=== PATIENT | female | born 1985 | race African-American/Black ===

== ENCOUNTER 2023-03-29 10:07 | Outpatient (AMB) | payer OTHER, SELFPAY ==
[2023-03-29 10:33] VITALS: BP 96/62; PULSE 86; O2SAT 97; BMI 30.9
--- NOTE | 2023-03-29 10:33 | A.OFFPC_ITS ---
Vital Signs 03/29/23 10:33 Height 5 ft 4 in Weight 180 lb BMI 30.9 BP 96/62 Blood Pressure Location Lt brachial Position Sitting Pulse 86 Pulse Source Pulse Oximeter Pulse Oximetry (%) 97 Oxygen Delivery Method Room Air Intake Visit Reasons: [facility], asthma attack Intake Note: Pt is here today for ER follow up visit. Allergies montelukast Allergy (Unknown, Verified 03/29/23 10:34) swelling of her lymph nodes Medication List - Last Reconciled 03/29/23 by Tere Koenig MD albuterol sulfate 90 mcg/actuation 2 puffs PO Q4H PRN albuterol sulfate 0.63 mg (3 mL) inhalation QID PRN ascorbate calcium (vitamin C) 500 mg PO DAILY Breo Ellipta 100-25 mcg/dose (fluticasone furoate-vilanterol) 1 inh inhalation DAILY NS dupilumab (Dupixent) 300 mg subcut Q2W ferrous fumarate 324 mg PO DAILY multivitamin with minerals (Hair,Skin and Nails tablet) 1 tab PO DAILY nebulizers As directed pyridoxine (vitamin B6) 50 mg PO DAILY Tobacco use date assessed: 03/29/23 Dental Screening Dental Screen Date: 03/29/23 Did you have a dental visit in the last 12 months?: Yes Did you have a dental problem in the last 6 months where you did not have access to dental care?: No Was dental information given to patient?: Patient has dentist HPI [facility], asthma attack HPI Details Pt c/o persistent cough and wheezing and clear sputum using Albuterol up to 4 x a day and at night. Pt denies fever, chills, CP. Patient was seen in the ED and was treated with a short course of prednisone. She reports her asthma symptoms worsened when she ran out of Dupixent a few months. Patient follows up with ENT who has been prescribing Dupixent and has been getting allergy shots. [facility] Medical History Folliculitis Candidiasis Annual physical exam Allergic rhinitis Asthma Family History Father No problems noted. Mother No problems noted. Social History Housing: House Alcohol intake: never Patient Tobacco Use Status: Never used Tobacco e-Cigarette/Vaping Use: Never Used Current occupational status: employed Cognitive needs: No Hearing needs: No Vision needs: Yes Questionnaire PHQ-9 Over the last 2 weeks, how often have you been bothered by any of the following problems? 1. Little interest or pleasure in doing things: several days 2. Feeling down, depressed, or hopeless: several days 3. Trouble falling or staying asleep, or sleeping too much: nearly every day 4. Feeling tired or having little energy: nearly every day 5. Poor appetite or overeating: several days 6. Feeling bad about yourself - or that you are a failure or have let yourself or your family down: not at all 7. Trouble concentrating on things, such as reading the newspaper or watching television: more than half the days 8. Moving or speaking so slowly that other people could have noticed. Or the opposite - being so fidgety or restless that you have been moving around a lot more than usual: not at all 9. Thoughts that you would be better off or of hurting yourself in some way: not at all Total score: 11 Depression Screening Interpretation: Positive Depression Screening Done: Yes Source: Developed by Drs. Alverto Lacy, Echo Barber, Tyree Escobedo and colleagues, with an educational radha from [employer]. Thrive Questionnaire Date Thrive assessed: 03/29/23 I am a: Patient What is your living situation today?: I have a steady place to live Within the past 12 months, did the food you bought not last and you didn't have the money to get more?: Never true Within the past 12 months, did you worry whether your food would run out before you got money to buy more?: Never true Do you have trouble paying for medicines?: No Do you have trouble getting transportation to medical appointments?: No Do you have trouble paying your heating and electricity bill?: No Do you have trouble taking care of your child, family member or friend?: No Do you have trouble with day-to-day activities such as bathing, preparing meals, shopping, managing finances, etc.?: No Are you currently unemployed and looking for a job?: No Are you interested in more education?: No Please select the resources that you would like help with: None THRIVE Score: 0 AUDIT C Alcohol Use Questionnaire (AUDIT-C) 1. How often do you have a drink containing alcohol?: Monthly or less 2. How many drinks containing alcohol do you have on a typical day when you are drinking?: 1 or 2 3. How often do you have six or more drinks on one occasion?: Never Total Score: 1 MANNY-7 AMB Questionnaire MANNY-7 Date MANNY - 7 assessed: 03/29/23 Feeling nervous, anxious, or on edge: 2 = More than half the days Not being able to stop or control worryin = More than half the days Worrying too much about different things: 2 = More than half the days Trouble relaxin = More than half the days Being so restless that it is hard to sit still: 0 = Not at all Becoming easily annoyed or irritable: 1 = Several days Feeling afraid as if something awful might happen: 0 = Not at all Total MANNY-7 score (0-4 normal; 5-9 mild; 10-14 moderate; 15-21 severe): 9 Source: Developed by Drs. Alverto Lacy, Echo Barber, Tyree Escobedo and colleagues, with an educational radha from [employer]. Review of Systems Const All systems reviewed & are unremarkable except as noted in HPI and below Reports no additional complaints Eyes Reports no additional complaints ENT Reports no additional complaints Card Reports no additional complaints Resp Reports no additional complaints GI Reports no additional complaints Reports no additional complaints Physical exam (Primary Care) Vital Signs: Last Vital Signs Pulse 86 03/29/23 10:33 BP 96/62 03/29/23 10:33 Pulse Ox 97 03/29/23 10:33 Oxygen Delivery Method Room Air 03/29/23 10:33 BMI result Body Mass Index 30.9 Tobacco/Smoking Status: Tobacco use Status Tobacco use date assessed 03/29/23 03/29/23 10:35 Patient Tobacco Use Status Never used Tobacco 03/29/23 10:35 e-Cigarette/Vaping Use Never Used 03/29/23 10:33 PHQ-9: PHQ-9 Score PHQ-9: Total score 11 03/29/23 11:18 Depression Screening Interpretation: Positive Thrive Assessment: Date of Thrive Assessment Date Thrive assessed 03/29/23 03/29/23 11:18 Const General: no acute distress HENMT Head: Yes normal to inspection Ears: hearing grossly normal bilaterally General nose exam: Normal external nose present Mouth: Normal oral and palatal mucosa present Neck Neck: Yes no lymphadenopathy and Yes supple Resp Effort & Inspection: normal respiratory effort Auscultation: clear to auscultation bilaterally Cardio Rhythm: regular rhythm Heart sounds: S1 normal heart sound present and S2 normal heart sound present GI Inspection: Yes normal to inspection Palpation (GI): Soft to palpation Percussion: Yes normal to percussion Auscultation: normal bowel sounds Assessment and Plan Assessment & Plan (1) Asthma: Comment: since childhood Code(s): J45.909 - Unspecified asthma, uncomplicated Plan: Start Breo 100/25 daily continue albuterol as needed and patient restarted Dupixent. She follow-up in 1 month (2) Allergic rhinitis: Code(s): J30.9 - Allergic rhinitis, unspecified Plan: Continue immunotherapy with ENT Medications: New albuterol sulfate 0.63 mg (3 mL) inhalation QID PRN 180 mL 3RF shortness of breath or wheezing nebulizers As directed 1 ea 0RF Breo Ellipta 100-25 mcg/dose (fluticasone furoate-vilanterol) 1 inh inhalation DAILY 60 ea 2RF NS Refilled albuterol sulfate 90 mcg/actuation 2 puffs PO Q4H PRN 8.5 grams 6RF shortness of breath or wheezing Coding Level of Care Code Est Pt Level 3 (38286) Diagnoses Asthma J45.909 Allergic rhinitis J30.9
== END 2023-03-29 15:19 | disposition home or self-care (01) ==
PROVIDERS: PCP Internal Medicine; Visit Provider Internal Medicine
DX: J45.909 Unspecified asthma, uncomplicated (principal); J30.9 Allergic rhinitis, unspecified
CPT/HCPCS: 99213

== ENCOUNTER 2023-04-29 14:19 | Outpatient (AMB) | payer OTHER, SELFPAY ==
--- NOTE | 2023-04-29 14:24 | MHC.PC.OV ---
Vital Signs 04/29/23 14:25 Height 5 ft 4 in Weight 184 lb BMI 31.6 BP 104/66 Blood Pressure Location Lt brachial Position Sitting Pulse 85 Pulse Source Palpation Intake Visit Reasons: 1 month follow up Intake Note: Pt is here today for 1 month follow up visit. Allergies montelukast Allergy (Unknown, Verified 04/29/23 14:26) swelling of her lymph nodes Medication List - Last Reconciled 04/29/23 by Tere Koenig MD albuterol sulfate 0.63 mg (3 mL) inhalation QID PRN ascorbate calcium (vitamin C) 500 mg PO DAILY Breo Ellipta 100-25 mcg/dose (fluticasone furoate-vilanterol) 1 inh inhalation DAILY NS Breo Ellipta 200-25 mcg/dose (fluticasone furoate-vilanterol) 1 inh inhalation DAILY NS dupilumab (Dupixent) 300 mg subcut Q2W ferrous fumarate 324 mg PO DAILY multivitamin with minerals (Hair,Skin and Nails tablet) 1 tab PO DAILY nebulizers As directed pyridoxine (vitamin B6) 50 mg PO DAILY sulfamethoxazole-trimethoprim 800-160 mg 1 tab PO BID Ventolin HFA 90 mcg/actuation (albuterol sulfate) 2 puffs inhalation Q6H PRN NS Ventolin HFA 90 mcg/actuation (albuterol sulfate) 2 puffs PO Q4H PRN NS Tobacco use date assessed: 03/29/23 HPI 1 month follow up HPI Details Patient presents for the follow-up of asthma. She is feeling better but still needs to use albuterol more than 5 times a week. She started Dupixent injections last month. And has been getting immunotherapy once a week. [facility] Medical History Folliculitis Candidiasis Annual physical exam Allergic rhinitis Asthma Family History Father No problems noted. Mother No problems noted. Social History Housing: House Alcohol intake: never Patient Tobacco Use Status: Never used Tobacco e-Cigarette/Vaping Use: Never Used Current occupational status: employed Cognitive needs: No Hearing needs: No Vision needs: Yes Questionnaire Thrive Questionnaire Date Thrive assessed: 03/29/23 MANNY-7 AMB Questionnaire MANNY-7 Date MANNY - 7 assessed: 03/29/23 Source: Developed by Drs. Alverto Lacy, Echo Barber, Tyree Escobedo and colleagues, with an educational radha from [employer]. Review of Systems Const All systems reviewed & are unremarkable except as noted in HPI and below Reports no additional complaints Eyes Reports no additional complaints ENT Reports no additional complaints Card Reports no additional complaints Resp Reports no additional complaints GI Reports no additional complaints Physical exam (Primary Care) Vital Signs: Last Vital Signs Pulse 85 04/29/23 14:25 BP 104/66 04/29/23 14:25 BMI result Body Mass Index 31.6 Tobacco/Smoking Status: Tobacco use Status Tobacco use date assessed 03/29/23 04/29/23 14:32 Patient Tobacco Use Status Never used Tobacco 04/29/23 14:32 e-Cigarette/Vaping Use Never Used 04/29/23 14:32 Thrive Assessment: Date of Thrive Assessment Date Thrive assessed 03/29/23 04/29/23 14:32 Const General: no acute distress HENMT Ears: hearing grossly normal bilaterally General nose exam: Normal external nose present Eyes General: appearance normal, both eyes and all related structures Neck Neck: Yes supple Resp Effort & Inspection: normal respiratory effort Auscultation: clear to auscultation bilaterally Cardio Rhythm: regular rhythm Heart sounds: S1 normal heart sound present and S2 normal heart sound present Assessment and Plan Assessment & Plan (1) Asthma: Comment: since childhood Code(s): J45.909 - Unspecified asthma, uncomplicated Plan: Patient will take Breo 200 for 1 month and then will restart Breo 100 mcg and continue Dupixent, she follows up with ENT and Allergy, physical in 3 months with a fasting labs before (2) Annual physical exam: Code(s): Z00.00 - Encounter for general adult medical examination without abnormal findings Plan: Well-balanced diet regular exercise discussed with the patient (3) Allergic rhinitis: Comment: getting immunotherapy q 2 weeks Code(s): J30.9 - Allergic rhinitis, unspecified Orders: Orders Complete Blood Count Auto Diff 3 Months J30.9 - Allergic rhinitis, unspecified, J45.909 - Unspecified asthma, uncomplicated, Z00.00 - Encounter for general adult medical examination without abnormal findings Lipid Panel 3 Months J30.9 - Allergic rhinitis, unspecified, J45.909 - Unspecified asthma, uncomplicated, Z00.00 - Encounter for general adult medical examination without abnormal findings TSH reflex Free T4 3 Months J30.9 - Allergic rhinitis, unspecified, J45.909 - Unspecified asthma, uncomplicated, Z00.00 - Encounter for general adult medical examination without abnormal findings Comprehensive [place]. Panel Fast 3 Months J30.9 - Allergic rhinitis, unspecified, J45.909 - Unspecified asthma, uncomplicated, Z00.00 - Encounter for general adult medical examination without abnormal findings Medications: New Breo Ellipta 200-25 mcg/dose (fluticasone furoate-vilanterol) 1 inh inhalation DAILY 60 ea 0RF NS Coding Level of Care Code Est Pt Level 3 (02611) Diagnoses Asthma J45.909 Annual physical exam Z00.00 Allergic rhinitis J30.9
[2023-04-29 14:25] VITALS: BP 104/66; PULSE 85; BMI 31.6
== END 2023-04-29 15:05 | disposition home or self-care (01) ==
PROVIDERS: PCP Internal Medicine; Visit Provider Internal Medicine
DX: J45.909 Unspecified asthma, uncomplicated (principal); Z00.00 Encounter for general adult medical examination without abnormal findings; J30.9 Allergic rhinitis, unspecified
CPT/HCPCS: 99213

== ENCOUNTER 2023-07-12 11:42 | Outpatient (AMB) | payer OTHER, SELFPAY ==
[2023-07-12 11:47] VITALS: BP 130/78; PULSE 66; TEMP 36.6; O2SAT 99; BMI 33.0
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
== END 2023-07-12 12:17 | disposition home or self-care (01) ==
PROVIDERS: PCP Internal Medicine; Visit Provider Nurse Practitioner Primary Care
DX: M62.830 Muscle spasm of back (principal)
CPT/HCPCS: 99213

== ENCOUNTER 2023-07-27 09:52 | Outpatient (AMB) | payer OTHER, SELFPAY ==
[2023-07-27 09:54] VITALS: BP 92/58; PULSE 66; O2SAT 97; BMI 32.4
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
== END 2023-07-27 10:37 | disposition home or self-care (01) ==
LOC: HO.HMGC 09:52
PROVIDERS: PCP Internal Medicine; Visit Provider Internal Medicine
DX: M54.50 Low back pain, unspecified (principal); M54.2 Cervicalgia; J45.909 Unspecified asthma, uncomplicated
CPT/HCPCS: 99213

== ENCOUNTER 2023-10-24 14:01 | Outpatient (AMB) | payer OTHER, SELFPAY ==
[2023-10-24 14:12] VITALS: BP 110/74; PULSE 67; O2SAT 96; BMI 31.8
--- NOTE | 2023-10-24 14:12 | A.OFFPC_ITS ---
Vital Signs 10/24/23 14:12 Height 5 ft 4 in Weight 185 lb BMI 31.8 BP 110/74 Blood Pressure Location Lt brachial Position Sitting Pulse 67 Pulse Source Pulse Oximeter Pulse Oximetry (%) 96 Oxygen Delivery Method Room Air Intake Visit Reasons: PE Intake Note: Pt is here today for PE. Allergies montelukast Allergy (Unknown, Verified 10/24/23 14:24) swelling of her lymph nodes Medication List - Last Reconciled 10/24/23 by Tere Koenig MD albuterol sulfate 0.63 mg (3 mL) inhalation QID PRN ascorbate calcium (vitamin C) 500 mg PO DAILY dupilumab (Dupixent) 300 mg subcut Q2W ferrous fumarate 324 mg PO DAILY multivitamin with minerals (Hair,Skin and Nails tablet) 1 tab PO DAILY nebulizers As directed pyridoxine (vitamin B6) 50 mg PO DAILY Ventolin HFA 90 mcg/actuation (albuterol sulfate) 2 puffs inhalation Q6H PRN NS Tobacco use date assessed: 10/24/23 Dental Screening Dental Screen Date: 07/27/23 HPI PE HPI Details Pt presents for PE. Asthma is well controlled on Dupixent. Patient follows up with the bookkeeping service sales agent for immunotherapy. Patient complains of chronic symptoms of not emptying her bladder completely. He had a urinalysis checked by diesel locomotive engineer in the past. Patient denies dysuria, abdominal pain fever chills back pain. [facility] Medical History Folliculitis Candidiasis Annual physical exam Allergic rhinitis Asthma Surgical History Hx of section H/O sinus surgery Family History Father No problems noted. Mother No problems noted. Social History Housing: House Alcohol intake: never Patient Tobacco Use Status: Never used Tobacco e-Cigarette/Vaping Use: Never Used service: No Current occupational status: employed Cognitive needs: No Hearing needs: No Vision needs: Yes Questionnaire PHQ-9 Over the last 2 weeks, how often have you been bothered by any of the following problems? 1. Little interest or pleasure in doing things: not at all 2. Feeling down, depressed, or hopeless: not at all 3. Trouble falling or staying asleep, or sleeping too much: not at all 4. Feeling tired or having little energy: not at all 5. Poor appetite or overeating: not at all 6. Feeling bad about yourself - or that you are a failure or have let yourself or your family down: not at all 7. Trouble concentrating on things, such as reading the newspaper or watching television: not at all 8. Moving or speaking so slowly that other people could have noticed. Or the opposite - being so fidgety or restless that you have been moving around a lot more than usual: not at all 9. Thoughts that you would be better off or of hurting yourself in some way: not at all Total score: 0 Depression Screening Interpretation: Negative Depression Screening Done: Yes 83168 - PHQ-9 Billing: Yes Source: Developed by Drs. Alverto Lacy, Echo Barber, Tyree Escobedo and colleagues, with an educational radha from [employer]. Thrive Questionnaire Date Thrive assessed: 10/24/23 I am a: Patient What is your living situation today?: I have a steady place to live Within the past 12 months, did the food you bought not last and you didn't have the money to get more?: Never true Within the past 12 months, did you worry whether your food would run out before you got money to buy more?: Never true Do you have trouble paying for medicines?: No Do you have trouble getting transportation to medical appointments?: No Do you have trouble paying your heating and electricity bill?: No Do you have trouble taking care of your child, family member or friend?: No Do you have trouble with day-to-day activities such as bathing, preparing meals, shopping, managing finances, etc.?: No Are you currently unemployed and looking for a job?: No Are you interested in more education?: No Please select the resources that you would like help with: None Currently or been in a relationship where the following occur: No concerns reported THRIVE Score: 0 AUDIT C Alcohol Use Questionnaire (AUDIT-C) 1. How often do you have a drink containing alcohol?: 2-4 times a month 2. How many drinks containing alcohol do you have on a typical day when you are drinking?: 1 or 2 3. How often do you have six or more drinks on one occasion?: Never Total Score: 2 MANNY-7 AMB Questionnaire MANNY-7 Date MANNY - 7 assessed: 10/24/23 Feeling nervous, anxious, or on edge: 1 = Several days Not being able to stop or control worryin = Several days Worrying too much about different things: 1 = Several days Trouble relaxin = Several days Being so restless that it is hard to sit still: 0 = Not at all Becoming easily annoyed or irritable: 1 = Several days Feeling afraid as if something awful might happen: 1 = Several days Total MANNY-7 score (0-4 normal; 5-9 mild; 10-14 moderate; 15-21 severe): 6 Source: Developed by Drs. Alverto Lacy, Echo Barber, Tyree Escobedo and colleagues, with an educational radha from [employer]. MANNY-7 Assessment Billing MANNY-7 Assessment Tool: MANNY-7 Assessment 00353 Review of Systems Const All systems reviewed & are unremarkable except as noted in HPI and below Reports no additional complaints Eyes Reports no additional complaints ENT Reports no additional complaints Card Reports no additional complaints Resp Reports no additional complaints GI Reports no additional complaints Reports no additional complaints Physical exam (Primary Care) Vital Signs: Last Vital Signs Pulse 67 10/24/23 14:12 BP 110/74 10/24/23 14:12 Pulse Ox 96 10/24/23 14:12 Oxygen Delivery Method Room Air 10/24/23 14:12 BMI result Body Mass Index 31.8 Tobacco/Smoking Status: Tobacco use Status Tobacco use date assessed 10/24/23 10/24/23 14:25 Patient Tobacco Use Status Never used Tobacco 10/24/23 14:14 e-Cigarette/Vaping Use Never Used 10/24/23 14:14 PHQ-9: PHQ-9 Score PHQ-9: Total score 0 10/24/23 14:35 Depression Screening Interpretation: Negative Thrive Assessment: Date of Thrive Assessment Date Thrive assessed 10/24/23 10/24/23 14:35 Currently or been in a relationship where the following occur: No concerns reported Const General: no acute distress HENMT Head: Yes normal to inspection Ears: hearing grossly normal bilaterally Face and sinus: Yes normal facial exam Mouth: Normal oral and palatal mucosa present Throat: Yes posterior oropharynx normal Eyes General: appearance normal, both eyes and all related structures Pupils: Equal, round and reactive pupils present EOM: EOMs intact bilaterally Neck Neck: Yes no lymphadenopathy and Yes supple Resp Effort & Inspection: normal respiratory effort Auscultation: clear to auscultation bilaterally Cardio Rhythm: regular rhythm Heart sounds: S1 normal heart sound present and S2 normal heart sound present GI Inspection: Yes normal to inspection Palpation (GI): Soft to palpation Percussion: Yes normal to percussion Auscultation: normal bowel sounds Neuro Cranial nerves: Yes Equal, round and reactive pupils present Assessment and Plan Assessment & Plan (1) Annual physical exam: Code(s): Z00.00 - Encounter for general adult medical examination without abnormal findings Plan: Well-balanced diet regular physical activity discussed with the patient. She will return for fasting blood work. Patient is established with diesel locomotive engineer (2) Asthma: Comment: since childhood, controlled on Dupixent, follows up with bookkeeping service sales agent Code(s): J45.909 - Unspecified asthma, uncomplicated Plan: Continue current treatment follow-up with bookkeeping service sales agent (3) Urinary retention: Code(s): R33.9 - Retention of urine, unspecified Plan: Obtain bladder scan to rule out urinary retention check UA Orders: Orders US bladder Today J45.909 - Unspecified asthma, uncomplicated, R33.9 - Retention of urine, unspecified, Z00.00 - Encounter for general adult medical examination without abnormal findings Comprehensive [place]. Panel Fast Today J45.909 - Unspecified asthma, uncomplicated, R33.9 - Retention of urine, unspecified, Z00.00 - Encounter for general adult medical examination without abnormal findings Complete Blood Count Auto Diff Today J45.909 - Unspecified asthma, uncomplicated, R33.9 - Retention of urine, unspecified, Z00.00 - Encounter for general adult medical examination without abnormal findings UA w Microscopic Today J45.909 - Unspecified asthma, uncomplicated, R33.9 - Retention of urine, unspecified, Z00.00 - Encounter for general adult medical examination without abnormal findings IRON PROFILE Today J45.909 - Unspecified asthma, uncomplicated, R33.9 - Retention of urine, unspecified, Z00.00 - Encounter for general adult medical examination without abnormal findings Lipid Panel Today J45.909 - Unspecified asthma, uncomplicated, R33.9 - Retention of urine, unspecified, Z00.00 - Encounter for general adult medical examination without abnormal findings Coding Level of Care Code Est Pt Prev Care 18-39y(63112) Diagnoses Annual physical exam Z00.00 Asthma J45.909 Urinary retention R33.9 Additional Codes MANNY-7 Assessment Billing - MANNY-7 Assessment Tool: MANNY-7 Assessment 42684 ([id number])
== END 2023-10-24 15:31 | disposition home or self-care (01) ==
PROVIDERS: PCP Internal Medicine; Visit Provider Internal Medicine
DX: Z00.00 Encounter for general adult medical examination without abnormal findings (principal); J45.909 Unspecified asthma, uncomplicated; R33.9 Retention of urine, unspecified
CPT/HCPCS: 99395

== ENCOUNTER 2024-01-13 10:43 | Outpatient (REF) | payer OTHER, SELFPAY ==
[2024-01-13 13:14] LABS: MANUAL DIFF FLAG NO
[2024-01-13 13:16] LABS: Basophils Percent Auto 0.3 % (0-2); Eosinophils Absolute Auto 0.2 X10*3/uL (0.0-0.4); Eosinophils Percent Auto 5.8 % (0-4); Hematocrit 38.6 % (37.0-47.0); Hemoglobin 12.5 g/dl (12.0-16.0); Imm Gran Abs Auto 0.01 X10*3/uL (0.00-0.03); Imm Gran Pct Auto 0.3 % (0.0-0.4); Lymphocytes Absolute Auto 2.1 X10*3/uL (1.2-4.9); Lymphocytes Percent Auto 51.8 % (20-40); Mean Corpuscular HGB Conc 32.4 g/dl (31.0-35.0); Mean Corpuscular Hemoglobin 28.4 pg (27.0-33.0); Mean Corpuscular Volume 87.7 fL (80.0-98.0); Mean Platelet Volume 10.7 fL (9.4-12.3); Monocytes Absolute Auto 0.3 X10*3/uL (0.1-1.2); Monocytes Percent Auto 6.6 % (2-11); Neutrophils Absolute Auto 1.4 x10*3/uL (2.0-8.3); Neutrophils Percent Auto 35.2 % (45-73); Platelet Count 269 X10*3/uL (160-400); Red Cell Distribution Width 12.8 % (11.0-16.0)
[2024-01-13 13:39] LABS: Appearance Urine Clear; Color Urine Yellow; Glucose Urine UA Negative (Negative); Leukocyte Esterase Urine Negative (Negative); Nitrite Urine Negative (Negative); PH 7.5 (5.0-9.0); Specific Gravity - Urine 1.025 (1.005-1.025); Urine Blood Negative (Negative); Urine Ketones Negative (Negative); Urine Protein Negative (Neg-Trace)
[2024-01-13 13:43] LABS: Bacteria Urine Trace (None Seen); Hyaline Casts Urine 0-2 /LPF (0-2); RBC Urine 0-2 /HPF (0-2); WBC Urine 0-5 /HPF (0-5)
[2024-01-13 14:01] LABS: Alanine Aminotransferase 16 U/L (0-31); Albumin Level 4.4 g/dL (3.5-5.0); Alkaline Phosphatase 46 U/L (39-117); Anion Gap 12 (12-20); Aspartate Amino Transferase 20 U/L (5-31); Bilirubin Total 0.4 mg/dL (0.0-1.0); Blood Urea Nitrogen 9 mg/dL (9-16); Calcium 9.5 mg/dL (8.4-10.2); Carbon Dioxide 24 mmol/L (22-29); Chloride 107 mmol/L (96-108); Cholesterol 200 mg/dL (<200); Estimated Glomerular Filt Rate > 60; Glucose Fasting 86 mg/dL (60-99); HDL Cholesterol 49 mg/dL (>40); Iron 72 mcg/dL (30-160); LDL Cholesterol Calculated 138 mg/dL (<100); Percent Iron Saturation 25 % (15-50); Sodium 139 mmol/L (135-145); Total Iron Binding Capacity 291 mcg/dL (228-428); Total Protein 8.1 g/dL (6.5-8.0); Triglycerides 69 mg/dL (<150); Unsaturated Iron Binding 219 ug/dL
[2024-01-13 14:04] LABS: TSH reflex Free T4 1.25 uIU/mL (0.32-4.0)
== END 2024-01-13 10:44 | disposition home or self-care (01) ==
LOC: HO.HMGCLDS 10:43
PROVIDERS: PCP Internal Medicine; Visit Provider Internal Medicine
DX: Z00.00 Encounter for general adult medical examination without abnormal findings (principal); J30.9 Allergic rhinitis, unspecified; R33.9 Retention of urine, unspecified; J45.909 Unspecified asthma, uncomplicated
CPT/HCPCS: 36415; 80053; 80061; 81001; 83540; 84443; 85025

== ENCOUNTER 2024-11-09 10:15 | Outpatient (REF) | payer OTHER, SELFPAY ==
[2024-11-09 13:12] LABS: MANUAL DIFF FLAG NO
[2024-11-09 13:25] LABS: Hematocrit 36.3 % (37.0-47.0); Hemoglobin 12.0 g/dl (12.0-16.0); Imm Gran Abs Auto 0.00 X10*3/uL (0.00-0.03); Imm Gran Pct Auto 0.0 % (0.0-0.4); Lymphocytes Absolute Auto 2.4 X10*3/uL (1.2-4.9); Mean Corpuscular HGB Conc 33.1 g/dl (31.0-35.0); Mean Corpuscular Hemoglobin 28.6 pg (27.0-33.0); Mean Corpuscular Volume 86.6 fL (80.0-98.0); NRBC Abs Auto 0.040 X10*3/uL (0.0-0.012); NRBC Pct Auto 0.9 /100WBC (0.0-0.2); Platelet Count 253 X10*3/uL (160-400); Red Blood Count 4.19 X10*6/uL (4.20-5.50); White Blood Count 4.4 X10*3/uL (4.8-10.8)
[2024-11-09 14:03] LABS: Alanine Aminotransferase 20 U/L (0-31); Albumin Level 4.5 g/dL (3.5-5.0); Alkaline Phosphatase 44 U/L (39-117); Anion Gap 12 (12-20); Aspartate Amino Transferase 22 U/L (5-31); Blood Urea Nitrogen 15 mg/dL (9-16); Calcium 9.4 mg/dL (8.4-10.2); Carbon Dioxide 26 mmol/L (22-29); Chloride 107 mmol/L (96-108); Cholesterol 191 mg/dL (<200); Estimated Glomerular Filt Rate > 60; HDL Cholesterol 52 mg/dL (>40); Iron 77 mcg/dL (30-160); Percent Iron Saturation 28 % (15-50); Potassium 4.5 mmol/L (3.3-5.1); Sodium 140 mmol/L (135-145); Total Iron Binding Capacity 276 mcg/dL (228-428); Total Protein 8.1 g/dL (6.5-8.0); Triglycerides 44 mg/dL (<150); Unsaturated Iron Binding 199 ug/dL
== END 2024-11-09 10:16 | disposition home or self-care (01) ==
LOC: HO.HMGCLDS 10:15
PROVIDERS: PCP Internal Medicine; Visit Provider Internal Medicine
DX: Z00.00 Encounter for general adult medical examination without abnormal findings (principal); J45.909 Unspecified asthma, uncomplicated; M54.50 Low back pain, unspecified
CPT/HCPCS: 36415; 80053; 80061; 82306; 83540; 84443; 85025; 96127

== ENCOUNTER 2024-11-09 10:15 | Outpatient (AMB) | payer OTHER, SELFPAY ==
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
[2024-11-09 10:19] VITALS: BP 96/64; PULSE 63; RESP 18; TEMP 36.7; O2SAT 96; BMI 29.0
--- OUTSIDE RECORDS SUMMARY | 2024-11-09 11:17 | XMS_ITS | Encounter Summary ---
Author Organization [facility] Address [address] [place] [address] Care Team Providers Care Pig Handler Name Role Phone Yudelka Eckert MD Primary Care Provider [phone] Tere Koenig MD Primary Care Provider Real Tavera MD Unavailable [phone] Zeenat Rhodes MD Unavailable [phone] Encounter Details Date Type Department Care Team (Late st Contact Info) Description 02/26/2019 Scanned Document [facility] [address] [facility] [address] [place] [phone] Pulmonary, Scan Social History Tobacco Use Types Packs/Day Years Used Date Smoking Tobacco: Never Smokeless Tobacco: Never Alcohol Use Standard Drinks/Week Comments No 0 (1 standard drink = 0.6 oz pur e alcohol) Comments No Sex and Gender Information Value Date Recorded Sex Assigned at Female 02/16/2023 3:07 PM EST Legal Sex Female 11:21 AM EDT Gender Identity Female 02/16/2023 3:07 PM EST Sexual Orientation Heterosexual (straight) 12/21 4:09 PM EDT documented as of this encounter Plan of Treatment Upcoming Encounters Date Type Department Care Team (Late st Contact Info) Description 11/28/2024 4:00 PM EDT Clinical Support [facility] Department of Allergy [address] [place] [phone] 05/03/2025 10:00 AM EST Office Visit [facility] Department of Ear, Nose, and Throat [address] [phone] Yoseph Negron MD [address] [place] [address] documented as of this encounter Visit Diagnoses Not on filedocumented in this encounter Care Teams Pig Handler Relationship Specialty Start Date End Date Yudelka Eckert MD [address] [place] [address] PCP - General Internal Medicine 08/25/16 03/24/21 Tere Koenig MD [address] [place] [address] PCP - General 03/25/21 Real Tavera MD [address] [facility] [address] [address] Physician Gastroenterology 03/25/21 Zeenat Rhodes MD [address] [place] [address] [place] [address] Consulting Provider Allergy 04/15/21 documented as of this encounter
--- OUTSIDE RECORDS SUMMARY | 2024-11-09 11:17 | XMS_ITS | Encounter Summary ---
Author Organization [facility] Address [address] [place] [address] Care Team Providers Care Shale Miner Name Role Phone Tere Koenig MD Primary Care Provider [phone] Real Tavera MD Unavailable Zeenat Rhodes MD Unavailable Encounter Details Date Type Department Care Team (Late st Contact Info) Description 02/01/2024 Scanned Document [facility] Department of Ear, Nose, and Throat [address] [place] [phone] Yoseph Negron MD [address] [place] [address] Social History Tobacco Use Types Packs/Day Years [...] Description 11/28/2024 4:00 PM EDT Clinical Support [facility] Department of Allergy [place] [address] [place] [address] 05/03/2025 10:00 AM EST Office Visit [facility] Department of Ear, Nose, and Throat [address] [phone] Yoseph Negron MD [address] [place] [address] documented as of this encounter Visit Diagnoses Not on filedocumented in this encounter Care Teams Shale Miner Relationship Specialty Start Date End Date Tere Koenig MD [address] [place] [address] PCP - General 03/25/21 Real Tavera MD [address] [place] [address] [address] [place] [address] Physician Gastroenterology 03/25/21 Zeenat Rhodes MD [address] [place] [address] Consulting Provider Allergy 04/15/21 documented as of this encounter
--- OUTSIDE RECORDS SUMMARY | 2024-11-09 11:17 | XMS_ITS | Encounter Summary ---
Author Organization [facility] Address [address] [place] [address] Care Team Providers Care Human Performance Consultant Name Role Phone Tere Koenig MD Primary Care Provider Real Tavera MD Unavailable Zeenat Rhodes MD Unavailable Encounter Details Date Type Department Care Team (Late st Contact Info) Description 04/18/2024 Scanned Document [facility] Department of Ear, Nose, and Throat [address] [place] [phone] Yoseph Negron MD [address] [place] [address] Social History Tobacco Use Types Packs/Day Years [...] Description 11/28/2024 4:00 PM EDT Clinical Support [place] Department of Allergy [place] [address] [place] [address] 05/03/2025 10:00 AM EST Office Visit [facility] Department of Ear, Nose, and Throat [address] [phone] Yoseph Negron MD [address] [place] [address] documented as of this encounter Visit Diagnoses Not on filedocumented in this encounter Care Teams Human Performance Consultant Relationship Specialty Start Date End Date Tere Koenig MD [address] [place] [address] PCP - General 03/25/21 Real Tavera MD [address] [place] [address] [address] [place] [address] Physician Gastroenterology 03/25/21 Zeenat Rhodes MD [address] [place] [address] [place] [address] Consulting Provider Allergy 04/15/21 documented as of this encounter
--- OUTSIDE RECORDS SUMMARY | 2024-11-09 11:17 | XMS_ITS | Clinical Summary ---
Author Organization [facility] ity Address [address] [place] [address] Care Team Providers Care City Supervisor Name Role Phone Tere Koenig MD Primary Care Provider [phone] Surgical History Surgery Date Site/Laterality Comments SECTION PROCEDURE: SECTION OTHER SURGICAL HISTORY PROCEDURE:sinus Medical History Medical History Date Comments Asthma DX:Asthma COPD (chronic obstructive pu lmonary disease) ([facility] V24, CMS/HCC V28) DX:COPD (chronic o bstructive pulmonary disease) ([facility]) Seasonal allergies DX:Seasonal a llergies Sinusitis DX:Sinusitis Social History Tobacco Use Types Packs/Day Years Used Date Smoking Tobacco: Never Smokeless Tobacco: Never Alcohol Use Standard Drinks/Week Comments No 0 (1 standard drink = 0.6 oz pur e alcohol) Comments Unknown Sex and Gender Information Value Date Recorded Sex Assigned at Not on file Legal Sex Female 9:47 AM EST Gender Identity Not on file Sexual Orientation Not on file Obstetrics History Plan of Treatment Health Maintenance Due Date Last Done Comments DTaP,Tdap,and Td Vaccines (1 - Tdap) 07/23/2006 Hepatitis B Vaccines (1 of 3 - 19+ 3-dose series) 07/23/2006 Cervical Cancer Screening: P ap Smear 07/23/2008 HIV Screening 02/02/2022 Hepatitis C Screening 02/02/2022 Social Influencers of Health Screening 02/02/2022 Depression Screening 03/07/2024 COVID-19 Vaccine (1 - 2023-2 5 season) 2024 Influenza Vaccine (#1) 2024 HIB Vaccines Aged Out No longer eligi ble based on patient's age to complete this topic HPV Vaccines Aged Out No longer eligi ble based on patient's age to complete this topic Hepatitis A Vaccines Aged Out No long er eligible based on patient's age to complete this topic IPV Vaccines Aged Out No longer eligi ble based on patient's age to complete this topic MMR Vaccines Aged Out No longer eligi ble based on patient's age to complete this topic Meningococcal ACWY Vaccine Aged Out N o longer eligible based on patient's age to complete this topic Meningococcal B Vaccine Aged Out No l onger eligible based on patient's age to complete this topic Pneumococcal Vaccine: Pediat rics (0 to 5 Years) and At-Risk Patients (6 to 49 Years) Aged Out No longer eligible b ased on patient's age to complete this topic RSV Immunization Patients Un azeb 20 months Aged Out No longer eligible b ased on patient's age to complete this topic Varicella Vaccines Aged Out No longer eligible based on patient's age to complete this topic Care Teams City Supervisor Relationship Specialty Start Date End Date Tere Koenig MD PCP - General Stitcher Feeder 11/05/17
--- OUTSIDE RECORDS SUMMARY | 2024-11-09 11:17 | XMS_ITS | Encounter Summary ---
Author Organization [facility] Address [address] [place] [address] Care Team Providers Care Mantel Craftsman Name Role Phone Tere Koenig MD Primary Care Provider [phone] Real Tavera MD Unavailable Zeenat Rhodes MD Unavailable [phone] Encounter Details Date Type Department Care Team (Late st Contact Info) Description 04/23/2021 Scanned Document [address] [address] [facility] [address] [place] [phone] Ramon Perez MD [address] [place], [place] [id number] Social History Tobacco Use Types Packs/Day Years [...] Orientation Heterosexual (straight) 12/21 4:09 PM EDT COVID-19 Exposure Response Date Recorded In the last month, have you been in contact with someone who was confirmed or suspected to have Coronavirus / COVID-19? No / Unsure 04/03/2021 11:36 AM EST documented as of this encounter Plan of Treatment Upcoming Encounters Date Type Department Care Team (Late st Contact Info) Description 11/28/2024 4:00 PM EDT Clinical Support [facility]icians Department of Allergy [place] [address] [place] [address] 05/03/2025 10:00 AM EST Office Visit [facility] Department of Ear, Nose, and Throat [address] [address] Yoseph Negron MD [address] [place] [address] documented as of this encounter Visit Diagnoses Not on filedocumented in this encounter Care Teams Mantel Craftsman Relationship Specialty Start Date End Date Tere Koenig MD [address] [place] [address] PCP - General 03/25/21 Real Tavera MD 21 [facility] [address] [place] [address] Physician Gastroenterology 03/25/21 Zeenat Rhodes MD [address] [place] [address] [place] [address] Consulting Provider Allergy 04/15/21 documented as of this encounter
--- OUTSIDE RECORDS SUMMARY | 2024-11-09 11:17 | XMS_ITS | Encounter Summary ---
Author Organization [facility] Address [address] [place] [address] Care Team Providers Care Nuisance Wildlife Trapper Name Role Phone Tere Koenig MD Primary Care Provider [phone] Real Tavera MD Unavailable [phone] Zeenat Rhodes MD Unavailable Encounter Details Date Type Department Care Team (Late st Contact Info) Description 02/17/2024 Scanned Document [facility] Department of Ear, Nose, and Throat [address] [place] [phone] Yoseph Negron MD [address] [place] [address] Social History Tobacco Use Types Packs/Day Years [...] Description 11/28/2024 4:00 PM EDT Clinical Support [facility] Department of Allergy [place] [address] [place] [address] 05/03/2025 10:00 AM EST Office Visit [facility] Department of Ear, Nose, and Throat [address] [address] Yoseph Negron MD [address] [place] [address] documented as of this encounter Visit Diagnoses Not on filedocumented in this encounter Care Teams Nuisance Wildlife Trapper Relationship Specialty Start Date End Date Tere Koenig MD [address] [place] [address] PCP - General 03/25/21 Real Tavera MD [address] [place] [address] [address] [place] [address] Physician Gastroenterology 03/25/21 Zeenat Rhodes MD [address] [place] [address] [place] [address] Consulting Provider Allergy 04/15/21 documented as of this encounter
--- OUTSIDE RECORDS SUMMARY | 2024-11-09 11:17 | XMS_ITS | Encounter Summary ---
Author Organization [facility] Address [address] [place] [address] Care Team Providers Care Power Line Installer Name Role Phone Yudelka Eckert MD Primary Care Provider [phone] Tere Koenig MD Primary Care Provider Real Tavera MD Unavailable [phone] Zeenat Rhodes MD Unavailable [phone] Encounter Details Date Type Department Care Team (Late st Contact Info) Description 02/13/2017 Scanned Document [address] [place] [phone] Provider, Generic Social History Tobacco Use Types Packs/Day Years [...] Description 11/28/2024 4:00 PM EDT Clinical Support [facility] Department of Allergy [address] [place] [address] 05/03/2025 10:00 AM EST Office Visit [facility] Department of Ear, Nose, and Throat [address] [address] Yoseph Negron MD [address] [place] [address] documented as of this encounter Visit Diagnoses Not on filedocumented in this encounter Care Teams Power Line Installer Relationship Specialty Start Date End Date Yudelka Eckert MD [address] [place] [address] PCP - General Internal Medicine 08/25/16 03/24/21 Tere Koenig MD [address] [place] [address] PCP - General 03/25/21 Real Tavera MD 21 [facility] [address] [place] [address] Physician Gastroenterology 03/25/21 Zeenat Rhodes MD [address] [place] [address] [place] [address] Consulting Provider Allergy 04/15/21 documented as of this encounter
--- OUTSIDE RECORDS SUMMARY | 2024-11-09 11:17 | XMS_ITS | Encounter Summary ---
Author Organization [facility] Address [address] [place] [address] Care Team Providers Care Driller'S Assistant Name Role Phone Yudelka Eckert MD Primary Care Provider [phone] Tere Koenig MD Primary Care Provider Rela Tavera MD Unavailable [phone] Zeenat Rhodes MD Unavailable [phone] Encounter Details Date Type Department Care Team (Late st Contact Info) Description 12/14/2016 Scanned Document [address] [place] [address] Provider, Generic Social History Tobacco Use Types [...] Clinical Support [facility] Department of Allergy [address] [place] [address] 05/03/2025 10:00 AM EST Office Visit [facility] Department of Ear, Nose, and Throat [address] [address] Yoseph Negron MD [address] [place] [address] documented as of this encounter Visit Diagnoses Not on filedocumented in this encounter Care Teams Driller'S Assistant Relationship Specialty Start Date End Date Yudelka Eckert MD [address] [place] [address] PCP - General Internal Medicine 08/25/16 03/24/21 Tere Koenig MD [address] [place] [address] PCP - General 03/25/21 Real Tavera MD 21 [facility] [address] [place] [address] Physician Gastroenterology 03/25/21 Zeenat Rhodes MD [address] [place] [address] [place] [address] Consulting Provider Allergy 04/15/21 documented as of this encounter
--- OUTSIDE RECORDS SUMMARY | 2024-11-09 11:17 | XMS_ITS | Encounter Summary ---
Author Organization [facility] Address [address] [place] [address] Care Team Providers Care Briquetter Operator Name Role Phone Tere Koenig MD Primary Care Provider Real Tavera MD Unavailable [phone] Zeenat Rhodes MD Unavailable Encounter Details Date Type Department Care Team (Late st Contact Info) Description 02/03/2022 Scanned Document [facility] Department of Allergy [address] [place] [phone] Zeenat Rhodes MD [address] [facility] [address] [place] [address] Social History Tobacco Use Types Packs/Day Years [...] Description 11/28/2024 4:00 PM EDT Clinical Support [facility] Department of Allergy [place] [address] [place] [address] 05/03/2025 10:00 AM EST Office Visit [facility] Department of Ear, Nose, and Throat [address] [address] Yoseph Negron MD [address] [place] [address] documented as of this encounter Visit Diagnoses Not on filedocumented in this encounter Care Teams Briquetter Operator Relationship Specialty Start Date End Date Tere Koenig MD [address] [place] [address] PCP - General 03/25/21 Real Tavera MD [address] [place] [address] [address] [place] [address] Physician Gastroenterology 03/25/21 Zeenat Rhodes MD [address] [place] [address] [place] [address] Consulting Provider Allergy 04/15/21 documented as of this encounter
--- OUTSIDE RECORDS SUMMARY | 2024-11-09 11:17 | XMS_ITS | Encounter Summary ---
Author Organization [facility] Address [address] [place] [address] Care Team Providers Care Refuse Driver Name Role Phone Yudelka Eckert MD Primary Care Provider [phone] Tere Koenig MD Primary Care Provider Real Tavera MD Unavailable [phone] Zeenat Rhodes MD Unavailable [phone] Encounter Details Date Type Department Care Team (Late st Contact Info) Description 03/20/2017 Scanned Document [address] [place] [address] Provider, Generic Social History Tobacco Use Types [...] Clinical Support [facility] Department of Allergy [address] [place] [address] 05/03/2025 10:00 AM EST Office Visit [facility] Department of Ear, Nose, and Throat [address] [address] Yoseph Negron MD [address] [place] [address] documented as of this encounter Visit Diagnoses Not on filedocumented in this encounter Care Teams Refuse Driver Relationship Specialty Start Date End Date Yudelka Eckert MD [address] [place] [address] PCP - General Internal Medicine 08/25/16 03/24/21 Tere Koenig MD [address] [place] [address] PCP - General 03/25/21 Real Tavera MD 21 [facility] [address] [place] [address] Physician Gastroenterology 03/25/21 Zeenat Rhodes MD [address] [place] [address] [place] [address] Consulting Provider Allergy 04/15/21 documented as of this encounter
--- OUTSIDE RECORDS SUMMARY | 2024-11-09 11:17 | XMS_ITS | Encounter Summary ---
Author Organization [facility] Address [address] [place] [address] Care Team Providers Care Casing Crew Pusher Name Role Phone Tere Koenig MD Primary Care Provider [phone] Real Tavera MD Unavailable [phone] Zeenat Rhodes MD Unavailable [phone] Encounter Details Date Type Department Care Team (Late st Contact Info) Description 04/03/[address] [facility] 10 [facility] [address] [place] [address] Ramon Perez MD [address] [place] [address] Social History Tobacco Use Types Packs/Day Years [...] Description 11/28/2024 4:00 PM EDT Clinical Support [facility] Department of Allergy [place] [address] [place] [address] 05/03/2025 10:00 AM EST Office Visit [facility] Department of Ear, Nose, and Throat [address] [address] Yoseph Negron MD [address] [place] [address] documented as of this encounter Procedures Procedure Name Priority Date/Time Associated Diagnosis Comments PATHOLOGY REPORT 04/03/2021 12:0 0 AM EST documented in this encounter Results * PATHOLOGY REPORT (04/03/2021 12:00 AM EST) Ramon Perez MD PATHOLOGY/CYTOLOGY ORDERABLES Fi nal Result documented in this encounter Visit Diagnoses Not on filedocumented in this encounter Care Teams Casing Crew Pusher Relationship Specialty Start Date End Date Tere Koenig MD [address] [place] [address] PCP - General 03/25/21 Real Tavera MD [address] [place] [address] [address] [place] [address] Physician Gastroenterology 03/25/21 Zeenat Rhodes MD [address] [place] [address] [place] [address] Consulting Provider Allergy 04/15/21 documented as of this encounter
--- OUTSIDE RECORDS SUMMARY | 2024-11-09 11:17 | XMS_ITS ---
Author Name [facility] Organization Unknown Results Test Name/Text Value Interpretation Date Range Source Service [facility] XXX-Imp Cepheid GeneXpert (RT-PCR) [facility] Normal 04/06/2023 [facility] RSV RNA Nph Ql REX+non-probe NEGATIVE Normal 04/06/2023 [facility] FLUBV RNA Nph Ql REX+non-probe NEGATIVE Normal 04/06/2023 [facility] FLUAV RNA Nph Ql REX+non-probe NEGATIVE Normal 04/06/2023 [facility] SPECIMEN SOURCE XXX NASOPHARYNGEAL Normal 04/06/2023 [facility] FLUBV RNA Nph Ql REX+non-probe NEGATIVE Normal 02/16/2023 [facility] FLUAV RNA Nph Ql REX+non-probe NEGATIVE Normal 02/16/2023 [facility] Service [facility] XXX-Imp Cepheid GeneXpert (RT-PCR) [facility] Normal 02/16/2023 [facility] RSV RNA Nph Ql REX+non-probe NEGATIVE Normal 02/16/2023 [facility] SPECIMEN SOURCE XXX NASOPHARYNGEAL Normal 02/16/2023 [facility] History of Medication Use Medication Directions Dispensed Refills Start Date End Date Stat Fluocinolone Acetonide 0.01 % Oil Administer 5 drops into both ears 2 (two) times a day as needed (ear itch). 05/01/2024 active sulfamethoxazole-tr imethoprim (BACTRIM DS,SEPTRA DS) 800-160 MG per tablet Take 1 tablet by mouth 2 (two) times a day. 04/22/2023 05/07/2023 active ondansetron (ZOFRAN) 4 MG tablet Take 1 tablet (4 mg total) by mouth 3 times daily (every 8 hours) as needed for nausea or vomiting. TAKE 15-20MIN PRIOR TO MEAL. 04/27/2021 04/22/2023 active dupilumab (Dupixent) 300 MG/2ML pen injector Inject under the skin. 04/21/2021 06/23/2022 aborted VENTOLIN HFA 108 (90 Base) MCG/ACT inhaler INHALE 2 PUFFS BY MOUTH EVERY 6 HOURS NEEDED FOR WHEEZING OR SHORTNESS OF BREATH 06/24/2017 active fluticasone-vilante rol (BREO ELLIPTA) 200-25 mcg/inh inhaler Inhale. 04/22/2023 aborted albuterol (5 mg/mL) 0.5% nebulizer solution Take 5 mg by nebulization 4 times daily (every 6 hours) as needed for wheezing. active Allergies Allergen Reaction Severity Comment Documented Date Source Statu s OXYTOCIN UNKNOWN/PATIENT AND FAMILY UNABLE TO DEFINE 04/22/2023 [facility] acti ve POLLEN EXTRACT UNKNOWN/PATIENT AND FAMILY UNABLE TO DEFINE 2018 [facility] acti ve PENICILLIN G UNKNOWN/PATIENT AND FAMILY UNABLE TO DEFINE 06/01/2017 [facility] acti ve CARROT GI INTOLERANCE/NAUSEA/VOMI TING [facility] Problems Problem Status Onset Date Problem Type Date of Resoluti on Source Mild intermittent asthma active 2016-11-23 ProblemAct [facility] Allergic rhinitis active 2022-05-19 ProblemAct [facility] Nasal polyposis [facility] En[facility] Encounter Type Encounter Reason Primary Diagnosis Location Date Ambulatory 6 MONTH FOLLOW UP 6 MONTH FOLLOW UP [facility] [employer] 11/02/2024 Ambulatory Allergic rhinitis, unspecified Allergic rhinitis, unspecified [facility] 10/31/2024 Ambulatory Allergic rhinitis, unspecified Allergic rhinitis, unspecified [facility] 10/03/2024 Ambulatory Allergic rhinitis, unspecified Allergic rhinitis, unspecified [facility] 09/26/2024 Ambulatory Allergic rhinitis, unspecified Allergic rhinitis, unspecified [facility] 09/12/2024 Ambulatory Allergic rhinitis, unspecified Allergic rhinitis, unspecified [facility] 08/08/2024 Ambulatory Allergic rhinitis, unspecified Allergic rhinitis, unspecified [facility] 07/11/2024 Ambulatory Allergic rhinitis, unspecified Allergic rhinitis, unspecified [facility] 06/13/2024 Ambulatory Allergic rhinitis, unspecified Allergic rhinitis, unspecified [facility] 05/16/2024 Ambulatory annual, dupixent annual, dupixent [facility] [employer] 05/01/2024 Ambulatory Allergic rhinitis, unspecified Allergic rhinitis, unspecified [facility] 04/18/2024 Ambulatory Allergic rhinitis, unspecified Allergic rhinitis, unspecified [facility] 03/21/2024 Ambulatory Allergic rhinitis, unspecified Allergic rhinitis, unspecified [facility] 02/22/2024 Ambulatory Allergic rhinitis, unspecified Allergic rhinitis, unspecified [facility] 02/08/2024 Ambulatory Allergic rhinitis, unspecified Allergic rhinitis, unspecified [facility] 01/25/2024 Ambulatory Allergic rhinitis, unspecified Allergic rhinitis, unspecified [facility] 01/18/2024 Ambulatory [facility] 12/14/2023 Ambulatory Allergic rhinitis, unspecified Allergic rhinitis, unspecified [facility] 11/30/2023 Ambulatory Allergic rhinitis, unspecified Allergic rhinitis, unspecified [facility] 11/16/2023 Ambulatory [facility] 11/09/2023 Ambulatory Allergic rhinitis, unspecified Allergic rhinitis, unspecified [facility] 10/19/2023 Ambulatory Allergic rhinitis, unspecified Allergic rhinitis, unspecified [facility] 08/24/2023 Ambulatory Allergic rhinitis, unspecified Allergic rhinitis, unspecified [facility] 07/27/2023 Ambulatory Allergic rhinitis, unspecified Allergic rhinitis, unspecified [facility] 06/29/2023 Ambulatory Allergic rhinitis, unspecified Allergic rhinitis, unspecified [facility] 06/01/2023 Ambulatory Allergic rhinitis, unspecified Allergic rhinitis, unspecified [facility] 05/25/2023 Ambulatory Allergic rhinitis, unspecified Allergic rhinitis, unspecified [facility] 05/18/2023 Ambulatory Allergic rhinitis, unspecified Allergic rhinitis, unspecified [facility] 05/11/2023 Ambulatory Allergic rhinitis, unspecified Allergic rhinitis, unspecified [facility] 04/27/2023 Ambulatory Chronic maxillary sinusitis Chronic maxillary sinusitis [facility] 04/22/2023 Emergency COVID-19 COVID-19 [facility] 04/05/19 Ambulatory Allergic rhinitis, unspecified Allergic rhinitis, unspecified [facility] 03/16/2023 Ambulatory Allergic rhinitis, unspecified Allergic rhinitis, unspecified [facility] 02/16/2023 Emergency Unspecified asthma with (acute) exacerbation Unspecified asthma with (acute) exacerbation [facility] 02/15/2023 Ambulatory Allergic rhinitis, unspecified Allergic rhinitis, unspecified [facility] 01/12/2023 Ambulatory Allergic rhinitis, unspecified Allergic rhinitis, unspecified [facility] 12/08/2022 Ambulatory Allergic rhinitis, unspecified Allergic rhinitis, unspecified [facility] 11/10/2022 Ambulatory Allergic rhinitis, unspecified Allergic rhinitis, unspecified [facility] 11/03/2022 Ambulatory Allergic rhinitis, unspecified Allergic rhinitis, unspecified [facility] 10/27/2022 Ambulatory Allergic rhiniti s, unspecified [facility] 09/22/2022 Ambulatory Allergic rhiniti s, unspecified [facility] 08/25/2022 Ambulatory Allergic rhiniti s, unspecified [facility] 07/21/2022 Ambulatory Allergic rhiniti s, unspecified [facility] 06/16/2022 Ambulatory [facility] 05/19/2022 Ambulatory Eosinophilic gas tritis or gastroenteritis [facility] 06/01/2021 Ambulatory Eosinophilic gas tritis or gastroenteritis [facility] 04/29/2021 Ambulatory Gastro-esophagea l reflux disease without esophagitis [facility] 04/03/2021 Ambulatory Epigastric pain [facility] 03/26/2021 Care Team Organization Name Specialty Phone Email Start Date End Da te [facility] Tere [facility] 07/11/2024 [facility] 03/27/2023 [facility] 03/27/2023 09/18/2024 [facility] 02/16/2023 09/18/2024 [facility] 02/0402/15/2023 [facility] 01/06/2023 [facility] TERE EMANUEL Primary Care 06/01/2021 [facility] 04/03/2021 06/02/19
--- OUTSIDE RECORDS SUMMARY | 2024-11-09 11:17 | XMS_ITS | Encounter Summary ---
Author Organization [facility] Address [address] [place] [address] Care Team Providers Care Water Resource Manager Name Role Phone Yudelka Eckert MD Primary Care Provider [phone] Tere Koenig MD Primary Care Provider Real Tavera MD Unavailable [phone] Zeenat Rhodes MD Unavailable [phone] Encounter Details Date Type Department Care Team (Late st Contact Info) Description 08/25/2016 Scanned Document [address] [phone] Provider, Generic Social History Tobacco Use Types Packs/Day Years Used Date Smoking Tobacco: Never Assessed Comments Unknown Sex and Gender Information Value [...] Description 11/28/2024 4:00 PM EDT Clinical Support [facility] Department of Allergy [address] [place] [address] 05/03/2025 10:00 AM EST Office Visit [facility] Department of Ear, Nose, and Throat [address] [place] [address] Yoseph Negron MD [address] [place] [address] documented as of this encounter Visit Diagnoses Not on filedocumented in this encounter Care Teams Water Resource Manager Relationship Specialty Start Date End Date Yudelka Eckert MD [address] [place] [address] PCP - General Internal Medicine 08/25/16 03/24/21 Tere Koenig MD [address] [place] [address] PCP - General 03/25/21 Real Tavera MD [address] [facility] [address] [place] [address] Physician Gastroenterology 03/25/21 Zeenat Rhodes MD [address] [place] [address] [place] [address] Consulting Provider Allergy 04/15/21 documented as of this encounter
--- OUTSIDE RECORDS SUMMARY | 2024-11-09 11:17 | XMS_ITS | Encounter Summary ---
Author Organization [facility] Address [address] [place] [address] [place] [address] Phone Care Team Providers Care Supervisor Fish Processing Name Role Phone Tere Koenig MD Primary Care Provider Self-Referred, Patient Unavailable Unavailab le Encounter Details Date Type Department Care Team (Late st Contact Info) Description 06/20/2024 Procedure Pass [facility] Radiology [address] [phone] Social History Tobacco Use Types Packs/Day Years Used Date Smoking Tobacco: Never Assessed Education Answer Date Recorded Are you interested in more education? Not on alek e 05/15/2024 Are you concerned about learning? Not on file 05/15/2024 No 05/15/2024 No 05/15/2024 Digital Access Answer Date Recorded No 05/15/2024 No 05/15/2024 Reliable internet access at home? Not on file 05/15/2024 Device with a working camera? Not on file Comments Unknown Sex and Gender Information Value Date Recorded Sex Assigned at Female 05/15/2024 11:00 AM EDT Legal Sex Female 6:59 PM EST Gender Identity Female 05/15/2024 11:00 AM EDT Sexual Orientation Straight 05/15/2024 11 :00 AM EDT documented as of this encounter Plan of Treatment Upcoming Encounters Date Type Department Care Team (Late st Contact Info) Description 09/19/2024 Procedure Pass [facility] [address] [address] 03/22/2025 2:30 PM EST Appointment [facility] [address] [address] Loretta Robbins PA-C 75 [place] [address] 03/22/2025 3:30 PM EST Office Visit [facility] Breast [facility] Surgery 75 [facility] [address] [place] [address] Loretta Robbins PA-C 75 [place] [address] documented as of this encounter Visit Diagnoses Not on filedocumented in this encounter Care Teams Supervisor Fish Processing Relationship Specialty Start Date End Date Tere Koenig MD [address] [place] [address] PCP - General Internal Medicine 05/15/24 Self-Referred, Patient Referring Physician 07/05/24 documented as of this encounter Additional Source Comments The information contained in this document represents components of the legal health record. It is not the complete legal health record.[facility]
--- OUTSIDE RECORDS SUMMARY | 2024-11-09 11:17 | XMS_ITS | Encounter Summary ---
Author Organization [facility] Address [address] [place] [address] [place] [address] Phone Care Team Providers Care Chemical Recovery Operator Name Role Phone Tere Koenig MD Primary Care Provider [phone] Self-Referred, Patient Unavailable Unavailab le Encounter Details Date Type Department Care Team (Late st Contact Info) Description 06/20/2024 Procedure Pass [facility] [address] [place] [address] Social History Tobacco Use Types Packs/Day Years [...] st Contact Info) Description 09/19/2024 Procedure Pass [facility] [address] [address] 03/22/2025 2:30 PM EST Appointment [facility] [address] [address] Loretta Robbins PA-C 75 [place] [address] 03/22/2025 3:30 PM EST Office Visit [facility] Breast Center Surgery 75 [facility] [address] [place] [address] Loretta Robbins PA-C 75 [place] [address] documented as of this encounter Visit Diagnoses Not on filedocumented in this encounter Care Teams Chemical Recovery Operator Relationship Specialty Start Date End Date Tere Koenig MD [address] [place] [address] PCP - General Internal Medicine 05/15/24 Self-Referred, Patient Referring Physician 07/05/24 documented as of this encounter Additional Source Comments The information contained in this document represents components of the legal health record. It is not the complete legal health record.[facility]
--- OUTSIDE RECORDS SUMMARY | 2024-11-09 11:19 | XMS_ITS | Encounter Summary ---
Author Organization [facility] Address [address] [place] [address] Care Team Providers Care Circular Knife Machine Cutter Name Role Phone Yudelka Eckert MD Primary Care Provider [phone] Tere Koenig MD Primary Care Provider Real Tavera MD Unavailable [phone] Zeenat Rhodes MD Unavailable [phone] Encounter Details Date Type Department Care Team (Late st Contact Info) Description 04/27/2017 Scanned Document [address] [place] [phone] Provider, Generic Social History Tobacco Use Types [...] Clinical Support [facility] Department of Allergy [address] [place] [address] 05/03/2025 10:00 AM EST Office Visit [facility] Department of Ear, Nose, and Throat [address] [address] Yoseph Negron MD [address] [place] [address] documented as of this encounter Procedures Procedure Name Priority Date/Time Associated Diagnosis Comments LAB RESULT 04/27/2017 documented in this encounter Results * LAB RESULT (04/27/2017) Narrative 04/27/2017 Ordered by an unspecified provider. us Generic Provider HX AMB PROCEDURES Edited Result - Final documented in this encounter Visit Diagnoses Not on filedocumented in this encounter Care Teams Circular Knife Machine Cutter Relationship Specialty Start Date End Date Yudelka Eckert MD [address] [place] [address] PCP - General Internal Medicine 08/25/16 03/24/21 Tere Koenig MD [address] [place] [address] PCP - General 03/25/21 Real Tavera MD 21 [facility] [address] [place] [address] Physician Gastroenterology 03/25/21 Zeenat Rhodes MD [address] [place] [address] Consulting Provider Allergy 04/15/21 documented as of this encounter
--- OUTSIDE RECORDS SUMMARY | 2024-11-09 11:19 | XMS_ITS | Encounter Summary ---
Author Organization [facility] Address [address] [place] [address] Care Team Providers Care Chief Airline Radio Operator Name Role Phone Tere Koenig MD Primary Care Provider [phone] Real Tavera MD Unavailable [phone] Zeenat Rhodes MD Unavailable Encounter Details Date Type Department Care Team (Late st Contact Info) Description 01/04/2024 Scanned Document [facility] Department of Ear, Nose, and Throat [address] [phone] Yoseph Negron MD [address] [place] [address] Social History Tobacco Use Types Packs/Day Years [...] Description 11/28/2024 4:00 PM EDT Clinical Support [facility] Department of Allergy [place] [address] [place] [address] 05/03/2025 10:00 AM EST Office Visit [facility] Department of Ear, Nose, and Throat [address] [address] Yoseph Negron MD [address] [place] [address] documented as of this encounter Visit Diagnoses Not on filedocumented in this encounter Care Teams Chief Airline Radio Operator Relationship Specialty Start Date End Date Tere Koenig MD [address] [place] [address] PCP - General 03/25/21 Real Tavera MD [address] [place] [address] [address] [place] [address] Physician Gastroenterology 03/25/21 Zeenat Rhodes MD [address] [place] [address] Consulting Provider Allergy 04/15/21 documented as of this encounter
--- OUTSIDE RECORDS SUMMARY | 2024-11-09 11:19 | XMS_ITS | Encounter Summary ---
Author Organization [facility] Address [address] [place] [address] Care Team Providers Care Home Lending Officer Name Role Phone Yudelka Eckert MD Primary Care Provider [phone] Tere Koenig MD Primary Care Provider [phone] Real Tavera MD Unavailable [phone] Zeenat Rhodes MD Unavailable [phone] Encounter Details Date Type Department Care Team (Late st Contact Info) Description 05/19/2017 Scanned Document [address] [place] [phone] Provider, Generic Social History Tobacco Use Types [...] Clinical Support [facility] Department of Allergy [address] [place] [address] 05/03/2025 10:00 AM EST Office Visit [facility] Department of Ear, Nose, and Throat [address] [address] Yoseph Negron MD [address] [place] [address] documented as of this encounter Visit Diagnoses Not on filedocumented in this encounter Care Teams Home Lending Officer Relationship Specialty Start Date End Date Yudelka Eckert MD [address] [place] [address] PCP - General Internal Medicine 08/25/16 03/24/21 Tere Koenig MD [address] [place] [address] PCP - General 03/25/21 Real Tavera MD 21 [facility] [address] [place] [address] Physician Gastroenterology 03/25/21 Zeenat Rhodes MD [address] [place] [address] Consulting Provider Allergy 04/15/21 documented as of this encounter
--- OUTSIDE RECORDS SUMMARY | 2024-11-09 11:19 | XMS_ITS | Clinical Summary ---
Author Organization [facility] Address 100 [place] [address] Care Team Providers Care Loan Documents Closer Name Role Phone Tere Koenig MD Primary Care Provider [phone] Real Tavera MD Unavailable [phone] Zeenat Rhodes MD Unavailable Allergies Active Allergy Reactions Criticality Noted Date Comments Carrot GI Intolerance/Nausea/Vomiting Low 04/22 Oxytocin Unknown/Patient and Family Unable to Define Medium 04/22/2023 Penicillin G Unknown/Patient and Family Unable to Define Medium 06/01/2017 Pollen Extract Unknown/Patient and Family Unable to Define Medium 2018 Medications VENTOLIN HFA 108 (90 Base) MCG/ACT inhalerIndicati ons:Asthma due to seasonal allergies INHALE 2 PUFFS BY MOUTH EVERY 6 HOURS NEEDED FOR WHEEZING OR SHORTNESS OF BREATH 3 Inhaler 8 Active Pyridoxine HCl (VITAMIN B-6 PO) Take by mouth. Activ e BIOTIN PO Take by mouth. Activ e Probiotic Product (PROBIOTIC DAILY PO) Take by mouth. Activ e Breo Ellipta 100-25 MCG/ACT inhaler Inhale 1 puff daily. 4 Active ascorbic acid 250 MG tablet Take 250 mg by mouth. Active Ferrous Sulfate (Iron) 325 (65 Fe) MG Tab Take by mouth. Acti ve albuterol (5 mg/mL) 0.5% nebulizer solution Take 5 mg by nebulization 4 times daily (every 6 hours) as needed for wheezing. Active dupilumab (Dupixent) 300 MG/2ML prefilled syringeIndicati ons:Nasal polyposis Inject 2 mL (300 mg total) under the skin every 14 days (2 weeks). 4 mL 12 5 Active Fluocinolone Acetonide 0.01 % OilIndications: Ear itch Administer 5 drops into both ears 2 (two) times a day as needed (ear itch). 20 mL 3 5 Active Active Problems Problem Noted Date Diagnosed Date Allergic rhinitis 05/19/2022 Mild intermittent asthma 11/23/2016 Encounters Date Type Department Care Team Description 11/02/2024 10:00 AM EDT Office Visit [facility] Department of Ear, Nose, and Throat [address] [address] Yoseph Negron MD Nasal polyposis (Primary Dx); Allergic rhinitis, unspecified seasonality, unspecified trigger 10/31/2024 2:30 PM EDT Clinical Support [facility] of Allergy [address] [place] [phone] Zeenat Rhodes MD Allergic rhinitis, unspecified seasonality, unspecified trigger (Primary Dx) 10/03/2024 1:30 PM EDT Clinical Support [facility] of Allergy [address] [place] [phone] Rocío Martel APRN Allergic rhinitis, unspecified seasonality, unspecified trigger (Primary Dx) 09/26/2024 2:45 PM EDT Clinical Support [facility] Allergy [address] [place] [phone] Zeenat Rhodes MD Allergic rhinitis, unspecified seasonality, unspecified trigger (Primary Dx) 09/12/2024 4:00 PM EDT Clinical Support [facility] Allergy [address] [place] [phone] Zeenat Rhodes MD Allergic rhinitis, unspecified seasonality, unspecified trigger (Primary Dx) from Last 3 Months Family History Medical History Relation Name Comments No Known Problems Father Brain tumor Mother Breast cancer Mother Relation Name Status Comments Father Alive Mother Alive diabetes Social History Tobacco Use Types Packs/Day Years [...] Orientation Heterosexual (straight) 12/21 4:09 PM EDT Last Filed Vital Signs Vital Sign Reading Time Taken Comments Blood Pressure 96/60 04/29/2021 9:41 AM EST Pulse 64 04/29/2021 9:41 AM EST Temperature 35.9 C (96.7 F) 04/29/2021 9:41 AM EST Respiratory Rate 16 04/03/2021 1:35 PM EST Oxygen Saturation 99% 04/03/2021 1:35 PM EST Inhaled Oxygen Concentration - - Weight 74.8 kg (165 lb) 06/01/2021 1:16 PM EDT Height 160 cm (5' 3 ) 06/01/2021 1:16 PM EDT Body Mass Index 29.23 06/01/2021 1:16 PM EDT Plan of Treatment Upcoming Encounters Date Type Department Care Team (Late st Contact Info) Description 11/28/2024 4:00 PM EDT Clinical Support [facility] Department of Allergy [place] [address] [place] [address] 05/03/2025 10:00 AM EST Office Visit [facility] Department of Ear, Nose, and Throat [address] [address] Yoseph Negron MD [address] [place] [address] Health Maintenance Due Date Last Done Comments Hepatitis C Virus Screening 1987 HIV Screening 07/23/2000 DTaP/Tdap/Td Vaccines (1 - Tdap) 07/23/2006 Hepatitis B Vaccines (1 of 3 - 19+ 3-dose series) 07/23/2006 Pneumococcal Vaccine: Pediat chava (0-5 Years) and At-Risk Patients (6 to 49 Years) (1 of 2 - PCV) 07/23/2006 HPV Vaccines (1 - 3-dose SCDM series) 07/23/2014 Pap Smear (Ages 21-65) 03/17/2017 7 (Previously Completed) COVID-19 Vaccine (3 - Modern a risk series) 10/16/2020 09/18/2020, 08/14/2020 Influenza Vaccine 10/05/2024 Insurance [employer] [id number] Care Teams Loan Documents Closer Relationship Specialty Start Date End Date Tere Koenig MD 77 [place] [address] PCP - General 03/25/21 Real Tavera MD 21 [place] [address] Physician Gastroenterology 03/25/21 Zeenat Rhodes MD [address] [place] [address] Consulting Provider Allergy 04/15/21
--- OUTSIDE RECORDS SUMMARY | 2024-11-09 11:19 | XMS_ITS | Encounter Summary ---
Author Organization [facility] Address [address] [place] [address] Care Team Providers Care Financial Sales Consultant Name Role Phone Yudelka Eckert MD Primary Care Provider [phone] Tere Koenig MD Primary Care Provider Real Tavera MD Unavailable Zeenat Rhodes MD Unavailable Reason for Visit * Reason Comments Medication Refill Encounter Details Date Type Department Care Team ([facility] Contact Info) Description 06/23/[address] [phone] Yudelka Eckert MD [address] [place] [address] Asthma due to seasonal allergies Social History Tobacco Use Types Packs/Day Years [...] Upcoming Encounters Date Type Department Care Team ([facility] Contact Info) Description 11/28/2024 4:00 PM EDT Clinical Support [facility] Department of Allergy [place] [address] [place] [address] 05/03/2025 10:00 AM EST Office Visit [facility] Department of Ear, Nose, and Throat [address] [address] Yoseph Negron MD [address] [place] [address] documented as of this encounter Visit Diagnoses Diagnosis Asthma due to seasonal allergies documented in this encounter Care Teams Financial Sales Consultant Relationship Specialty Start Date End Date Yudelka Eckert MD [address] [place] [address] PCP - General Internal Medicine 08/25/16 03/24/21 Tere Koenig MD [address] [place] [address] PCP - General 03/25/21 Real Tavera MD 21 [facility] 100 [place] [address] Physician Gastroenterology 03/25/21 Zeenat Rhodes MD [address] [place] [address] Consulting Provider Allergy 04/15/21 documented as of this encounter
--- OUTSIDE RECORDS SUMMARY | 2024-11-09 11:19 | XMS_ITS | Encounter Summary ---
Author Organization [facility] Address [address] [place] [address] Care Team Providers Care Forest Fire Officer Name Role Phone Yudelka Eckert MD Primary Care Provider [phone] Tere Koenig MD Primary Care Provider Real Tavera MD Unavailable [phone] Zeenat Rhodes MD Unavailable [phone] Encounter Details Date Type Department Care Team (Late st Contact Info) Description 04/26/2017 Scanned Document [address] [place] [phone] Provider, Generic Social History Tobacco Use Types [...] Clinical Support [facility] Department of Allergy [address] [place] [address] 05/03/2025 10:00 AM EST Office Visit [facility] Department of Ear, Nose, and Throat [address] [address] Yoseph Negron MD [address] [place] [address] documented as of this encounter Visit Diagnoses Not on filedocumented in this encounter Care Teams Forest Fire Officer Relationship Specialty Start Date End Date Yudelka Eckert MD [address] [place] [address] PCP - General Internal Medicine 08/25/16 03/24/21 Tere Koenig MD 77 [place] [address] PCP - General 03/25/21 Real Tavera MD 21 [facility] [address] [place] [address] Physician Gastroenterology 03/25/21 Zeenat Rhodes MD [address] [place] [address] Consulting Provider Allergy 04/15/21 documented as of this encounter
--- OUTSIDE RECORDS SUMMARY | 2024-11-09 11:19 | XMS_ITS | Encounter Summary ---
Author Organization [facility] Address [address] [place] [address] Care Team Providers Care Wire Fence Erector Name Role Phone Yudelka Eckert MD Primary Care Provider [phone] Tere Koenig MD Primary Care Provider Real Tavera MD Unavailable [phone] Zeenat Rhodes MD Unavailable [phone] Encounter Details Date Type Department Care Team (Late st Contact Info) Description 06/01/2017 Scanned Document [address] [place] [address] Provider, Generic Social History Tobacco Use Types [...] Clinical Support [facility] Department of Allergy [address] [place] [address] 05/03/2025 10:00 AM EST Office Visit [facility] Department of Ear, Nose, and Throat [address] [address] Yoseph Negron MD [address] [place] [address] documented as of this encounter Visit Diagnoses Not on filedocumented in this encounter Care Teams Wire Fence Erector Relationship Specialty Start Date End Date Yudelka Eckert MD [address] [place] [address] PCP - General Internal Medicine 08/25/16 03/24/21 Tere Koenig MD 77 [place] [address] PCP - General 03/25/21 Real Tavera MD 21 [facility] [address] [place] [address] Physician Gastroenterology 03/25/21 Zeenat Rhodes MD [address] [place] [address] Consulting Provider Allergy 04/15/21 documented as of this encounter
--- OUTSIDE RECORDS SUMMARY | 2024-11-09 11:19 | XMS_ITS | Encounter Summary ---
Author Organization [facility] Address [address] [place] [address] Care Team Providers Care Dyer Helper Name Role Phone Tere Koenig MD Primary Care Provider [phone] Real Tavera MD Unavailable [phone] Zeenat Rhodes MD Unavailable Encounter Details Date Type Department Care Team (Late st Contact Info) Description 12/29/2023 Scanned Document [facility] Department of Ear, Nose, and Throat [address] [phone] Yoseph Negron MD [address] [place] [address] Social History Tobacco Use Types Packs/Day Years [...] Description 11/28/2024 4:00 PM EDT Clinical Support [facility] Department of Allergy [place] [address] [place] [address] 05/03/2025 10:00 AM EST Office Visit [facility] Department of Ear, Nose, and Throat [address] [address] Yoseph Negron MD [address] [place] [address] documented as of this encounter Visit Diagnoses Not on filedocumented in this encounter Care Teams Dyer Helper Relationship Specialty Start Date End Date Tere Koenig MD [address] [place] [address] PCP - General 03/25/21 Real Tavera MD [address] [place] [address] [address] [place] [address] Physician Gastroenterology 03/25/21 Zeenat Rhodes MD [address] [place] [address] Consulting Provider Allergy 04/15/21 documented as of this encounter
--- OUTSIDE RECORDS SUMMARY | 2024-11-09 11:19 | XMS_ITS | Encounter Summary ---
Author Organization [facility] Address [address] [place] [address] Care Team Providers Care Pastry Finisher Name Role Phone Tere Koenig MD Primary Care Provider Real Tavera MD Unavailable Zeenat Rhodes MD Unavailable Encounter Details Date Type Department Care Team (Late st Contact Info) Description 06/22/2023 Scanned Document [facility] Department of Allergy [place] [address] [place] [phone] Zeenat Rhodes MD [address] [place] [address] Social History Tobacco Use Types Packs/Day Years [...] Description 11/28/2024 4:00 PM EDT Clinical Support [facility] Department of Allergy [place] [address] [place] [address] 05/03/2025 10:00 AM EST Office Visit [facility] Department of Ear, Nose, and Throat [address] [address] Yoseph Negron MD [address] [place] [address] documented as of this encounter Visit Diagnoses Not on filedocumented in this encounter Care Teams Pastry Finisher Relationship Specialty Start Date End Date Tere Koenig MD [address] [place] [address] PCP - General 03/25/21 Real Tavera MD 21 [facility] [address] [place] [address] Physician Gastroenterology 03/25/21 Zeenat Rhodes MD [address] [place] [address] Consulting Provider Allergy 04/15/21 documented as of this encounter
--- OUTSIDE RECORDS SUMMARY | 2024-11-09 11:19 | XMS_ITS | Encounter Summary ---
Author Organization [facility] Address [address] [place] [address] Care Team Providers Care Supervisor Inventory Merchandising Name Role Phone Yudelka Eckert MD Primary Care Provider [phone] Tere Koenig MD Primary Care Provider Real Tavera MD Unavailable [phone] Zeenat Rhodes MD Unavailable [phone] Encounter Details Date Type Department Care Team (Late st Contact Info) Description 08/04/2017 Scanned Document [address] [place] [phone] Provider, Generic Social History Tobacco Use Types [...] Clinical Support [facility] Department of Allergy [address] [place] [address] 05/03/2025 10:00 AM EST Office Visit [facility] Department of Ear, Nose, and Throat [address] [address] Yoseph Negron MD [address] [place] [address] documented as of this encounter Visit Diagnoses Not on filedocumented in this encounter Care Teams Supervisor Inventory Merchandising Relationship Specialty Start Date End Date Yudelka Eckert MD [address] [place] [address] PCP - General Internal Medicine 08/25/16 03/24/21 Tere Koenig MD 77 [place] [address] PCP - General 03/25/21 Real Tavera MD 21 [facility] [address] [place] [address] Physician Gastroenterology 03/25/21 Zeenat Rhodes MD [address] [place] [address] Consulting Provider Allergy 04/15/21 documented as of this encounter
--- OUTSIDE RECORDS SUMMARY | 2024-11-09 11:19 | XMS_ITS | Encounter Summary ---
Author Organization [facility] Address [address] [place] [address] Care Team Providers Care Steam Tender Name Role Phone Tere Koenig MD Primary Care Provider [phone] Real Tavera MD Unavailable Zeenat Rhodes MD Unavailable Encounter Details Date Type Department Care Team (Late st Contact Info) Description 12/27/2023 Scanned Document [facility]icians Department of Ear, Nose, and Throat [address] [phone] Yoseph Negron MD [address] [place] [address] Social History Tobacco Use Types Packs/Day Years [...] Description 11/28/2024 4:00 PM EDT Clinical Support [facility] Department of Allergy [place] [address] [place] [address] 05/03/2025 10:00 AM EST Office Visit [facility] Department of Ear, Nose, and Throat [address] [address] Yoseph Negron MD [address] [place] [address] documented as of this encounter Visit Diagnoses Not on filedocumented in this encounter Care Teams Steam Tender Relationship Specialty Start Date End Date Tere Koenig MD [address] [place] [address] PCP - General 03/25/21 Real Tavera MD [address] [place] [address] [address] [place] [address] Physician Gastroenterology 03/25/21 Zeenat Rhodes MD [address] [place] [address] Consulting Provider Allergy 04/15/21 documented as of this encounter
--- OUTSIDE RECORDS SUMMARY | 2024-11-09 11:19 | XMS_ITS | Encounter Summary ---
Author Organization [facility] Address [address] [place] [address] Care Team Providers Care Paving Foreman Name Role Phone Yudelka Eckert MD Primary Care Provider [phone] Tere Koenig MD Primary Care Provider [phone] Real Tavera MD Unavailable [phone] Zeenat Rhodes MD Unavailable [phone] Encounter Details Date Type Department Care Team (Late st Contact Info) Description 05/26/2017 Scanned Document [address] [place] [address] Provider, Generic Social History Tobacco Use Types [...] Clinical Support [facility] Department of Allergy [address] [place] [address] 05/03/2025 10:00 AM EST Office Visit [facility] Department of Ear, Nose, and Throat [address] [address] Yoseph Negron MD [address] [place] [address] documented as of this encounter Visit Diagnoses Not on filedocumented in this encounter Care Teams Paving Foreman Relationship Specialty Start Date End Date Yudelka Eckert MD [address] [place] [address] PCP - General Internal Medicine 08/25/16 03/24/21 Teer Koenig MD [address] [place] [address] PCP - General 03/25/21 Real Tavera MD 21 [facility] [address] [place] [address] Physician Gastroenterology 03/25/21 Zeenat Rhodes MD [address] [place] [address] Consulting Provider Allergy 04/15/21 documented as of this encounter
--- OUTSIDE RECORDS SUMMARY | 2024-11-09 11:19 | XMS_ITS | Encounter Summary ---
Author Organization [facility] Address [address] [place] [address] Care Team Providers Care Movie Critic Name Role Phone Yudelka Eckert MD Primary Care Provider [phone] Tere Koenig MD Primary Care Provider [phone] Real Tavera MD Unavailable [phone] Zeenat Rhodes MD Unavailable [phone] Encounter Details Date Type Department Care Team (Late st Contact Info) Description 01/30/2018 Scanned Document [address] [place] [address] Provider, Generic Social History Tobacco Use Types [...] Support [facility] Department of Allergy [address] [place] [address] 05/03/2025 10:00 AM EST Office Visit [facility] Department of Ear, Nose, and Throat [address] [address] Yoseph Negron MD [address] [place] [address] documented as of this encounter Visit Diagnoses Not on filedocumented in this encounter Care Teams Movie Critic Relationship Specialty Start Date End Date Yudelka Eckert MD [address] [place] [address] PCP - General Internal Medicine 08/25/16 03/24/21 Tere Koenig MD [address] [place] [address] PCP - General 03/25/21 Real Tavera MD 21 [facility] [address] [place] [address] Physician Gastroenterology 03/25/21 eZenat Rhodes MD [address] [place] [address] Consulting Provider Allergy 04/15/21 documented as of this encounter
--- OUTSIDE RECORDS SUMMARY | 2024-11-09 11:19 | XMS_ITS | Clinical Summary ---
Author Organization [facility] Address [address] [place] [address] Care Team Providers Care Munitions Worker Name Role Phone Tere Koenig MD Primary Care Provider [phone] Allergies Active Allergy Reactions Criticality Noted Date Comments Seasonal 2018 Medications Medication Sig Dispensed Refills Start Date End Date Status albuterol (PROVENTIL HFA;VENTOLIN HFA) 108 (90 BASE) MCG/ACT inhaler Inhale 2 puffs into the lungs. 0 10/12/2016 Active levonorgestrel (MIRENA) 20 MCG/24HR IUD 1 each by Intrauterine route. 0 Active Fluticasone Furoate-Vilanterol (BREO ELLIPTA IN) Inhale into the lungs. 0 Active Respiratory Therapy Supplies (FULL KIT NEBULIZER SET) MISC 1 ampule of albuterol (2.5mg/3mL) every 4 hours as needed for cough and wheezing 1 each 0 11/05/2017 Active albuterol (PROVENTIL) (2.5 MG/3ML) 0.083% nebulizer solution Albuterol Nebules 0.083% Dispense: One box Si ampule in nebulizer every 4 hours prn cough/wheezing/short ness of breath 75 mL 1 11/05/2017 Active ferrous sulfate 325 (65 FE) MG tablet Take 325 mg by mouth every morning with breakfast. 0 Active vitamin C (ASCORBIC ACID) 250 MG tablet Take 250 mg by mouth daily. 0 Active Fexofenadine HCl (KADIE PO) Take by mouth. 0 Active pantoprazole (PROTONIX) 40 MG tablet Take 1 tablet (40 mg total) by mouth every morning on an empty stomach. 30 tablet 0 03/24/2021 Active albuterol (PROVENTIL) (2.5 MG/3ML) 0.083% nebulizer solution Albuterol Nebules 0.083% Dispense: One box Sig: Use in home nebulizer as directed 75 mL 0 02/15/2023 Active predniSONE (DELTASONE) tablet 10 mg Prednisone 10 mg tablets - Disp. #40 - Si tabs daily x 3 days; 4 tabs daily x 3 days; 2 tabs daily x 3 days; 1 tab daily x 3 days 40 tablet 0 04/06/2023 Active guaiFENesin (ROBITUSSIN) 100 MG/5ML liquid Take 10 mL (200 mg total) by mouth 3 (three) times a day as needed for cough. 120 mL 0 04/06/2023 Active Active Problems No known active problems Social History Tobacco Use Types Packs/Day Years Used Date Smoking Tobacco: Never Smokeless Tobacco: Never Alcohol Use Standard Drinks/Week Comments No 0 (1 standard drink = 0.6 oz pur e alcohol) Sex and Gender Information Value Date Recorded Sex Assigned at Female 2018 3:55 PM EDT Gender Identity Not on file Sexual Orientation Not on file Job Start Date Occupation Industry Not on file Not on file Not on file Last Filed Vital Signs Vital Sign Reading Time Taken Comments Blood Pressure 109/70 04/05/2023 9:51 PM EST Pulse 62 04/05/2023 9:51 PM EST Temperature 36.9 C (98.4 F) 04/05/2023 9:51 PM EST Respiratory Rate 20 04/05/2023 9:51 PM EST Oxygen Saturation 96% 04/05/2023 10:25 PM EST Inhaled Oxygen Concentration - - Weight 79.4 kg (175 lb) 04/05/2023 9:51 PM EST Height 160 cm (5' 3 ) 04/05/2023 9:51 PM EST Body Mass Index 31 04/05/2023 9:51 PM EST Plan of Treatment Health Maintenance Due Date Last Done Comments Hepatitis B Vaccines (1 of 3 - 3-dose series) 1987 Hepatitis C Screening 1987 COVID-19 Vaccine (#1) 01/24/1988 Depression Screening 1999 Preventative Health Evaluation 07/23/2005 DTap / Tdap / Td (1 - Tdap) 07/23/2006 Cervical Cancer Screening (P ap Smear) 07/23/2008 Influenza Vaccine (#1) 2024 Pneumococcal Vaccine Aged Out No long er eligible based on patient's age to complete this topic RSV Ped < 20 months Aged Out No longe r eligible based on patient's age to complete this topic Care Teams Munitions Worker Relationship Specialty Start Date End Date Tere Koenig MD [address] [facility] [place] [address] PCP - General It Sales Executive 11/05/17
--- OUTSIDE RECORDS SUMMARY | 2024-11-09 11:19 | XMS_ITS | Encounter Summary ---
Author Organization [facility] Address [address] [place] [address] Care Team Providers Care Roller Shop Utility Worker Name Role Phone Yudelka Eckert MD Primary Care Provider [phone] Tere Koenig MD Primary Care Provider [phone] Real Tavera MD Unavailable [phone] Zeenat Rhdoes MD Unavailable [phone] Encounter Details Date Type Department Care Team (Late st Contact Info) Description 12/21/2017 Scanned Document [address] [place] [address] Provider, Generic Social History Tobacco Use Types [...] Clinical Support [facility] Department of Allergy [address] [place] [address] 05/03/2025 10:00 AM EST Office Visit [facility] Department of Ear, Nose, and Throat [address] [address] Yoseph Negron MD [address] [place] [address] documented as of this encounter Visit Diagnoses Not on filedocumented in this encounter Care Teams Roller Shop Utility Worker Relationship Specialty Start Date End Date Yudelka Eckert MD [address] [place] [address] PCP - General Internal Medicine 08/25/16 03/24/21 Tere Koneig MD [address] [place] [address] PCP - General 03/25/21 Real Tavera MD 21 [facility] [address] [place] [address] Physician Gastroenterology 03/25/21 Zeenat Rhodes MD [address] [place] [address] Consulting Provider Allergy 04/15/21 documented as of this encounter
--- OUTSIDE RECORDS SUMMARY | 2024-11-09 11:19 | XMS_ITS | Encounter Summary ---
Author Organization [facility] Address [address] [place] [address] Care Team Providers Care Night Monitor Name Role Phone Tere Koenig MD Primary Care Provider Real Tavera MD Unavailable [phone] Zeenat Rhodes MD Unavailable [phone] Encounter Details Date Type Department Care Team (Late st Contact Info) Description 01/24/2024 Scanned Document [facility] Physicians Department of Allergy [place] [address] [place] [phone] Zeenat Rhodes MD [address] [place] [address] Social History Tobacco Use Types Packs/Day Years [...] Description 11/28/2024 4:00 PM EDT Clinical Support [facility] Physicians Department of Allergy [place] [address] [place] [address] 05/03/2025 10:00 AM EST Office Visit [facility] Department of Ear, Nose, and Throat [address] [address] Yoseph Negron MD [address] [place] [address] documented as of this encounter Visit Diagnoses Not on filedocumented in this encounter Care Teams Night Monitor Relationship Specialty Start Date End Date Tere Koenig MD [address] [place] [address] PCP - General 03/25/21 Real Tavera MD 21 [facility] [address] [place] [address] Physician Gastroenterology 03/25/21 Zeenat Rhodes MD [address] [place] [address] Consulting Provider Allergy 04/15/21 documented as of this encounter
--- OUTSIDE RECORDS SUMMARY | 2024-11-09 11:19 | XMS_ITS | Encounter Summary ---
Author Organization [facility] Address [address] [place] [address] Care Team Providers Care Screwmaker Automatic Name Role Phone Tere Koenig MD Primary Care Provider [phone] Real Tavera MD Unavailable [phone] Zeenat Rhodes MD Unavailable [phone] Encounter Details Date Type Department Care Team (Late st Contact Info) Description 08/11/2023 Scanned Document [facility] Department of Ear, Nose, and Throat [address] [place] [address] Yoseph Negron MD [address] [place] [address] Social History Tobacco Use Types Packs/Day Years [...] 11/28/2024 4:00 PM EDT Clinical Support [facility] Department of Allergy [place] [address] [place] [address] 05/03/2025 10:00 AM EST Office Visit [facility] Department of Ear, Nose, and Throat [address] [address] Yoseph Negron MD [address] [place] [address] documented as of this encounter Visit Diagnoses Not on filedocumented in this encounter Care Teams Screwmaker Automatic Relationship Specialty Start Date End Date Tere Koenig MD [address] [place] [address] PCP - General 03/25/21 Real Tavera MD [address] [place] [address] [address] [place] [address] Physician Gastroenterology 03/25/21 Zeenat Rhodes MD [address] [place] [address] Consulting Provider Allergy 04/15/21 documented as of this encounter
--- OUTSIDE RECORDS SUMMARY | 2024-11-09 11:19 | XMS_ITS | Encounter Summary ---
Author Organization [facility] [place] [facility] Address [address] [place] [address] Care Team Providers Care Piledriver Carpenter Name Role Phone Tere Koenig MD Primary Care Provider [phone] Real Tavera MD Unavailable Zeenat Rhodes MD Unavailable Encounter Details Date Type Department Care Team (Late st Contact Info) Description 02/03/2023 Scanned Document [facility] Physicians Department of Ear, Nose, and Throat [address] [place] [address] Yoseph Negron MD [address] [place] [address] Social History Tobacco Use Types Packs/Day Years [...] Description 11/28/2024 4:00 PM EDT Clinical Support [facility] Department of Allergy [place] [address] [place] [address] 05/03/2025 10:00 AM EST Office Visit [facility] Department of Ear, Nose, and Throat [address] [address] Yoseph Negron MD [address] [place] [address] documented as of this encounter Visit Diagnoses Not on filedocumented in this encounter Care Teams Piledriver Carpenter Relationship Specialty Start Date End Date Tere Koenig MD [address] [place] [address] PCP - General 03/25/21 Real Tavera MD [address] [place] [address] [address] [place] [address] Physician Gastroenterology 03/25/21 Zeenat Rhodes MD [address] [place] [address] Consulting Provider Allergy 04/15/21 documented as of this encounter
--- OUTSIDE RECORDS SUMMARY | 2024-11-09 11:19 | XMS_ITS | Encounter Summary ---
Author Organization [facility] Address [address] [place] [address] Care Team Providers Care Wood Machine Carver Name Role Phone Yudelka Eckert MD Primary Care Provider [phone] Tere Koenig MD Primary Care Provider Real Tavera MD Unavailable [phone] Zeenat Rhodes MD Unavailable [phone] Encounter Details Date Type Department Care Team (Late st Contact Info) Description 09/14/2017 Scanned Document [address] [place] [address] Provider, Generic Social History Tobacco Use Types [...] Clinical Support [facility] Department of Allergy [address] [place] [address] 05/03/2025 10:00 AM EST Office Visit [facility] Department of Ear, Nose, and Throat [address] [address] Yoseph Negron MD [address] [place] [address] documented as of this encounter Visit Diagnoses Not on filedocumented in this encounter Care Teams Wood Machine Carver Relationship Specialty Start Date End Date Yudelka Eckert MD [address] [place] [address] PCP - General Internal Medicine 08/25/16 03/24/21 Tere Koenig MD [address] [place] [address] PCP - General 03/25/21 Real Tavera MD 21 [facility] [address] [place] [address] Physician Gastroenterology 03/25/21 Zeenat Rhodes MD [address] [place] [address] Consulting Provider Allergy 04/15/21 documented as of this encounter
--- OUTSIDE RECORDS SUMMARY | 2024-11-09 11:19 | XMS_ITS | Encounter Summary ---
Author Organization [facility] Address [address] [place] [address] Care Team Providers Care Vacuum Closing Machine Operator Name Role Phone Tere Koenig MD Primary Care Provider [phone] Real Tavera MD Unavailable [phone] Zeenat Rhodes MD Unavailable Encounter Details Date Type Department Care Team (Late st Contact Info) Description 01/31/2024 Scanned Document [facility]icians Department of Ear, Nose, and Throat [address] [place] [address] Yoseph Negron MD [address] [place] [address] Social History Tobacco Use Types Packs/Day Years [...] Description 11/28/2024 4:00 PM EDT Clinical Support [facility] Department of Allergy [place] [address] [place] [address] 05/03/2025 10:00 AM EST Office Visit [facility] Department of Ear, Nose, and Throat [address] [address] Yoseph Negron MD [address] [place] [address] documented as of this encounter Visit Diagnoses Not on filedocumented in this encounter Care Teams Vacuum Closing Machine Operator Relationship Specialty Start Date End Date Tere Koenig MD [address] [place] [address] PCP - General 03/25/21 Real Tavera MD [address] [place] [address] [address] [place] [address] Physician Gastroenterology 03/25/21 Zeenat Rhodes MD [address] [place] [address] Consulting Provider Allergy 04/15/21 documented as of this encounter
--- OUTSIDE RECORDS SUMMARY | 2024-11-09 11:19 | XMS_ITS | Encounter Summary ---
Author Organization [facility] Address [address] [place] [address] Care Team Providers Care Director Of Direct Marketing Name Role Phone Tere Koenig MD Primary Care Provider [phone] Real Tavera MD Unavailable [phone] Zeenat Rhodes MD Unavailable Encounter Details Date Type Department Care Team (Late st Contact Info) Description 01/26/2024 Scanned Document [facility] Physicians Department of Ear, Nose, and Throat [address] [place] [address] Yoseph Negron MD [address] [place] [address] Social History Tobacco Use Types Packs/Day Years [...] Description 11/28/2024 4:00 PM EDT Clinical Support [facility] Department of Allergy [place] [address] [place] [address] 05/03/2025 10:00 AM EST Office Visit [facility] Department of Ear, Nose, and Throat [address] [address] Yoseph Negron MD [address] [place] [address] documented as of this encounter Visit Diagnoses Not on filedocumented in this encounter Care Teams Director Of Direct Marketing Relationship Specialty Start Date End Date Tere Koenig MD [address] [place] [address] PCP - General 03/25/21 Real Tavera MD [address] [place] [address] [address] [place] [address] Physician Gastroenterology 03/25/21 Zeenat Rhodes MD [address] [place] [address] Consulting Provider Allergy 04/15/21 documented as of this encounter
--- OUTSIDE RECORDS SUMMARY | 2024-11-09 11:19 | XMS_ITS | Encounter Summary ---
Author Organization [facility] Address [address] [place] [address] Care Team Providers Care Online Affiliate Marketing Manager Name Role Phone Yudelka Eckert MD Primary Care Provider [phone] Tere Koenig MD Primary Care Provider Real Tavera MD Unavailable [phone] Zeenat Rhodes MD Unavailable [phone] Encounter Details Date Type Department Care Team (Late st Contact Info) Description 08/04/2017 Scanned Document [address] [place] [address] Provider, Generic Social History Tobacco Use Types [...] Clinical Support [facility] Department of Allergy [address] [place] [address] 05/03/2025 10:00 AM EST Office Visit [facility] Department of Ear, Nose, and Throat [address] [address] Yoseph Negron MD [address] [place] [address] documented as of this encounter Visit Diagnoses Not on filedocumented in this encounter Care Teams Online Affiliate Marketing Manager Relationship Specialty Start Date End Date Yudelka Eckert MD [address] [place] [address] PCP - General Internal Medicine 08/25/16 03/24/21 Tere Koenig MD [address] [place] [address] PCP - General 03/25/21 Real Tavera MD 21 [facility] [address] [place] [address] Physician Gastroenterology 03/25/21 Zeenat Rhodes MD [address] [place] [address] Consulting Provider Allergy 04/15/21 documented as of this encounter
== END 2024-11-09 11:27 | disposition home or self-care (01) ==
LOC: HO.HMCC 10:16
PROVIDERS: PCP Internal Medicine; Visit Provider Internal Medicine
DX: M54.50 Low back pain, unspecified (principal); J45.909 Unspecified asthma, uncomplicated; Z00.00 Encounter for general adult medical examination without abnormal findings